=== PATIENT | male | born 1985 | race Caucasian/White ===

== ENCOUNTER 2017-01-29 09:15 | Emergency (ER) | payer SELFPAY ==
[2017-01-29 09:24] VITALS: BP 136/83
--- NOTE | 2017-01-29 14:05 | Emergency Department Report ---
- General Chief complaint: Skin/Abscess/Foreign Body Stated complaint: ABCESS Time Seen by Provider: 01/29/17 13:37 Source: patient, family Mode of arrival: Ambulatory Limitations: No Limitations - History of Present Illness Initial comments: Patient here complaining of multiple abscess to his right and left buttocks between cheeks and also to his right upper thigh. Patient said he has a history of boils and stated that he had surgery at [facility] for abscesses to his buttocks and he gets them frequently. He is complaining the pain 9 out of 10 and throbbing. Tetanus vaccine is not up-to-date. Denies any fever or chills. Denies any nausea or vomiting. Patient said he took Goody powder for pain. He said he has several incision and drainage of abscesses. He is allergic to sulfa medication complaint: abscess/boil Onset/Timin -: days(s) Tetanus Up to Date: no Location: buttocks, RLE (thigh) Severity: severe Severity scale (0 -10): 9 Quality: other (throbbing) Consistency: constant Improves with: immobilization, rest Worsens with: palpation, movement Context: other (patient with multiple episode of abscesses) Associated symptoms: athralgias Treatments Prior to Arrival: bandages, other (goody) - Related Data Previous Rx's Medication Instructions Recorded Last Taken Type Ciprofloxacin HCl [Ciprofloxacin 500 mg PO Q12HR #20 tab 01/29/17 Unknown Rx TAB] Clindamycin [Clindamycin CAP] 300 mg PO Q8H #30 cap 01/29/17 Unknown Rx HYDROcodone/APAP 5-325 [Queen 1 each PO Q6HR PRN #12 tablet 01/29/17 Unknown Rx 5/325] Ibuprofen [Motrin] 600 mg PO Q8H PRN #15 tablet 01/29/17 Unknown Rx Allergies Allergy/AdvReac Type Severity Reaction Status Date / Time Sulfa (Sulfonamide Allergy Rash Verified 01/29/17 09:25 Antibiotics) Abscess Boil HPI - HPI Chief Complaint: Skin/Abscess/Foreign Body Stated Complaint: ABCESS Time Seen by Provider: 01/29/17 13:37 Home Medications: Previous Rx's Medication Instructions Recorded Last Taken Type Ciprofloxacin HCl [Ciprofloxacin 500 mg PO Q12HR #20 tab 01/29/17 Unknown Rx TAB] Clindamycin [Clindamycin CAP] 300 mg PO Q8H #30 cap 01/29/17 Unknown Rx HYDROcodone/APAP 5-325 [Queen 1 each PO Q6HR PRN #12 tablet 01/29/17 Unknown Rx 5/325] Ibuprofen [Motrin] 600 mg PO Q8H PRN #15 tablet 01/29/17 Unknown Rx Allergies/Adverse Reactions: Allergies Allergy/AdvReac Type Severity Reaction Status Date / Time Sulfa (Sulfonamide Allergy Rash Verified 01/29/17 09:25 Antibiotics) ED Review of Systems ROS: Stated complaint: ABCESS Other details as noted in HPI Comment: All other systems reviewed and negative Constitutional: denies: chills, fever Respiratory: no symptoms reported Cardiovascular: denies: chest pain, palpitations, edema, syncope Gastrointestinal: denies: nausea, vomiting Musculoskeletal: arthralgia. denies: back pain, myalgia Neurological: denies: headache, weakness, numbness, paresthesias, abnormal gait , vertigo ED Past Medical Hx - Past Medical History Previous Medical History?: Yes Additional medical history: boil - Surgical History Past Surgical History?: Yes Additional Surgical History: I&D of boils - Family History Family history: hypertension - Social History Smoking Status: Current Every Day Smoker Substance Use Type: Alcohol, Non Opiate Pain - Medications Home Medications: Home Medications Medication Instructions Recorded Confirmed Last Taken Type Ciprofloxacin HCl [Ciprofloxacin 500 mg PO Q12HR #20 tab 01/29/17 Unknown Rx TAB] Clindamycin [Clindamycin CAP] 300 mg PO Q8H #30 cap 01/29/17 Unknown Rx HYDROcodone/APAP 5-325 [Queen 1 each PO Q6HR PRN #12 tablet 01/29/17 Unknown Rx 5/325] Ibuprofen [Motrin] 600 mg PO Q8H PRN #15 tablet 01/29/17 Unknown Rx ED Physical Exam - General Limitations: No Limitations General appearance: alert, in no apparent distress - Head Head exam: Present: atraumatic, normocephalic, normal inspection - Eye Eye exam: Present: normal appearance, PERRL, EOMI Pupils: Present: normal accommodation - ENT ENT exam: Present: normal exam, normal orophraynx, mucous membranes moist, TM's normal bilaterally, normal external ear exam - Neck Neck exam: Present: normal inspection, full ROM. Absent: tenderness, meningismus, lymphadenopathy - Respiratory Respiratory exam: Present: normal lung sounds bilaterally. Absent: respiratory distress, chest wall tenderness - Cardiovascular Cardiovascular Exam: Present: normal rhythm, bradycardia, normal heart sounds - GI/Abdominal GI/Abdominal exam: Present: soft, normal bowel sounds. Absent: distended, tenderness, guarding, rebound, rigid - Extremities Exam Extremities exam: Present: normal inspection, full ROM, tenderness (the palpated right proximal thigh at abscess site), normal capillary refill. Absent : pedal edema, joint swelling, calf tenderness - Back Exam Back exam: Present: normal inspection, full ROM. Absent: tenderness, CVA tenderness (R), CVA tenderness (L), muscle spasm, paraspinal tenderness, vertebral tenderness, rash noted - Neurological Exam Neurological exam: Present: alert, oriented X3, normal gait, reflexes normal. Absent: motor sensory deficit - Psychiatric Psychiatric exam: Present: normal affect, normal mood - Skin Skin exam: Present: warm, dry, erythema, other (multiple abscesses) - Expanded Skin Exam Expanded Type of lesion: Present: abscess Distribution of rash: RLE (right proximal anterior thigh with abscess cellulitis authority drain in), other (abscesses to adduct his cheek already draining in with surgical scar noted. Purulent drainage. Some areas of erythema and some areas of induration.) Description of rash: Present: tenderness, erythematous, swelling, discharge ( areasalready draining.), indurated (elemental induration to areas that are already drain and) ED Course Vital Signs 01/29/17 09:20 Temperature 98 F Pulse Rate 94 H Respiratory 20 Rate Blood Pressure 136/83 O2 Sat by Pulse 98 Oximetry - Reevaluation(s) Reevaluation #1: 01/29/17 14:45 Patient given Rocephin 1 g IM in the emergency room to treat cellulitis and abscess to buttocks and right thigh with no adverse reaction. Patient also given Percocet 5/325 2 tablets in emergency room for pain. Patient also given Boostrix Reevaluation #2: 01/29/17 14:46 Abscess to right proximal thigh and buttocks cleansed with iodine and ns and dry sterile dsg place to sites. ED Medical Decision Making - Medical Decision Making ED course: Patient presented with multiple abscess areas located to bilateral buttock at cheek and right upper extremity. He's had previous episodes of multiple at abscesses which he said he had surgery to abscess with incision and drainage multiple side at [facility]. He gets the abscesses multiple times. He is complaining of pain. Patient reports that ear is already draining and and he just wants pain medication. Patient was cellulitis and abscess to right proximal anterior thigh and bilateral buttock that is already draining. Patient have some areas of induration around abscess and I told him he feels the need to put warm compresses the site to facilitate drainage. Patient given Rocephin 1 g IM in emergency room and Queen 5/325 2 tablets in emergency room. He was also given Boostrix 0.5 mg injection to update tetanus. Abscess cellulitic sites cleansed with iodine and normal saline and sterile dry dressing placed inside. Patient discharged home with prescription for Queen , motrin for pain and ciprofloxacin and clindamycin for full coverage. I discussed with patient that he will need to follow-up at his primary care physician he does not have a primary care physician is I discussed with them that he will need to follow up at [facility] or go back to [facility] since they are already familiar with his situation. Critical care attestation.: If time is entered above; I have spent that time in minutes in the direct care of this critically ill patient, excluding procedure time. ED Disposition Clinical Impression: Abscess of multiple sites, Cellulitis of multiple sites Disposition: DC- TO HOME OR SELFCARE Is pt being admited?: No Does the pt Need Aspirin: No Condition: Stable Instructions: Abscess (ED), Cellulitis (ED) Additional Instructions: Please keep affected area clean and dry Apply warm compress to affected area 3-4 times a day to facilitate drainage Take antibiotic as prescribed Do not drive or operate heavy machinery while taking in no code as this medication can cause drowsiness follow-up at this [facility] or at [facility] for you had your abscesses incision and drained multiple times. Prescriptions: Ciprofloxacin HCl [Ciprofloxacin TAB] 500 mg PO Q12HR #20 tab Clindamycin [Clindamycin CAP] 300 mg PO Q8H #30 cap HYDROcodone/APAP 5-325 [Queen 5/325] 1 each PO Q6HR PRN #12 tablet PRN Reason: Pain Ibuprofen [Motrin] 600 mg PO Q8H PRN #15 tablet PRN Reason: Pain Referrals: [facility] [Outside] - 2-3 Days [facility] [Outside] - 2-3 Days Forms: Work/School Release Form(ED)
[2017-01-29] MEDS ORDERED: ROCEPHIN IM STA (14:09)
[2017-01-29] MEDS ORDERED: XYLOCAINE 1% MPF 5 mL INFILTRATI ONE (14:09)
[2017-01-29] MEDS ORDERED: PERCOCET 5/325 PO ONE (14:09)
[2017-01-29] MEDS ORDERED: BOOSTRIX IM ONE (14:17)
== END 2017-01-29 15:10 | disposition home or self-care (01) ==
LOC: ED 09:15
DX: L02.31 Cutaneous abscess of buttock (principal); L03.317 Cellulitis of buttock; L03.115 Cellulitis of right lower limb; F17.210 Nicotine dependence, cigarettes, uncomplicated; Z88.2 Allergy status to sulfonamides
CPT/HCPCS: 90471; 90715; 96372; 99282; J0696